=== PATIENT | male | born 1950 | race Asian ===

== ENCOUNTER 2024-03-11 15:27 | Inpatient (IN) | payer MEDICARE ==
[~2024-03-11] VITALS: Ht 167.6 cm; Wt 84.6 kg
[2024-03-11 15:27] VITALS: BP_SYST 108; PULSE 55; RESP 20; TEMP 96.6; O2SAT 95
[2024-03-11 16:08] LABS: BASOPHILS # (AUTO) 0.1 K/uL (0.0-0.2); BASOPHILS % (AUTO) 0.8 % (0.0-2.0); EOSINOPHILS % (AUTO) 0.1 % (0.0-4.0); HEMATOCRIT 42.3 % (36-54); HEMOGLOBIN 14.6 g/dL (14.0-18.0); LYMPHOCYTES # (AUTO) 0.5 K/uL (1.0-5.5); LYMPHOCYTES % (AUTO) 6.9 % (20.5-51.5); MEAN CORPUSCULAR HEMOGLOBIN 35 pg (27-31); MEAN CORPUSCULAR HGB CONC 35 % (32-36); MEAN CORPUSCULAR VOLUME 101 fL (79.0-98.0); MONOCYTES # (AUTO) 0.3 K/uL (0.0-1.0); MONOCYTES % (AUTO) 4.6 % (1.7-9.3); NEUTROPHILS # (AUTO) 6.3 K/uL (1.8-7.7); NEUTROPHILS % (AUTO) 87.6 % (40.0-70.0); RED CELL DISTRIBUTION WIDTH 14.3 % (9.0-15.0); WHITE BLOOD COUNT (AUTO) 7.2 K/uL (4.8-10.8)
[2024-03-11] MEDS: NACL 0.9% 1,000 ML IV ONE (16:09)
[2024-03-11 16:16] LABS: INR 1.5 (0.80-1.20); PROTHROMBIN TIME 15.4 SECS (9.5-12.5)
[2024-03-11 16:24] LABS: PLATELET COUNT (AUTO) 87 K/uL (130-430)
[2024-03-11 16:34] LABS: ALANINE AMINOTRANSFERASE 2778 U/L (12-78); ALBUMIN 3.1 g/dL (3.4-4.8); ANION GAP 8 (5-15); ASPARTATE AMINOTRANSFERASE 1580 U/L (10-37); BILIRUBIN,DIRECT 1.7 mg/dL (0.0-0.3); CALCIUM 9.2 mg/dL (8.4-11.0); CARBON DIOXIDE 26 mmol/L (23-29); CHLORIDE 98 mmol/L (98-107); CREATINE KINASE, TOTAL 299 U/L (39-308); CREATININE 1.56 mg/dL (0.55-1.30); GLUCOSE 127 mg/dL (74-106); SODIUM SERUM 132 mmol/L (136-145); TOTAL BILIRUBIN 2.6 mg/dL (0.0-1.0); TOTAL PROTEIN, SERUM 6.1 g/dL (6.4-8.3); UREA NITROGEN, BLOOD 24 mg/dL (8-21)
[2024-03-11 16:48] LABS: COVID19 ANTIGEN SOFIA FIA POSITIVE (NEGATIVE)
[2024-03-11 17:01] LABS: INFLUENZA TYPE A Negative (NEGATIVE); INFLUENZA TYPE B NEGATIVE (NEGATIVE)
[2024-03-11 17:18] LABS: ACETAMINOPHEN < 1 ug/mL (1-30); SALICYLATE < 1 mg/dL (3-30)
[2024-03-11] MEDS ORDERED: LISI-652 PO (17:54)
[2024-03-11] MEDS ORDERED: CARV12.548 PO (17:54)
[2024-03-11] MEDS ORDERED: FAMO20TA8 PO (17:54)
[2024-03-11] MEDS ORDERED: LIP80 PO (17:54)
[2024-03-11] MEDS ORDERED: RANO10004 PO (17:54)
[2024-03-11] MEDS ORDERED: FLUO-331 PO (17:54)
[2024-03-11] MEDS ORDERED: CLOP75TA32 PO (17:55)
[2024-03-11] MEDS ORDERED: POTA-178 PO (17:55)
[2024-03-11] MEDS ORDERED: ASPI-524 PO (17:55)
[2024-03-11] MEDS ORDERED: FURO20TA4 PO (17:55)
[2024-03-11] MEDS ORDERED: FERR-69 PO (17:55)
[2024-03-11] MEDS ORDERED: ALPR0.255 PO (17:55)
[2024-03-11] MEDS ORDERED: FOLI-43 PO (17:55)
[2024-03-11 20:56] VITALS: BP_SYST 107; PULSE 58; RESP 20; TEMP 98.7
[2024-03-11] MEDS ORDERED: ALPRAZolam 0.25 MG TABLET PO PRN (23:30)
[2024-03-11] MEDS ORDERED: LORazepam 2 MG/ML VIAL IVP PRN (23:30)
[2024-03-11] MEDS ORDERED: NALOXONE HCL 0.4 MG/ML AMP (NARCAN) IVP PRN ×2 (23:30)
[2024-03-11] MEDS ORDERED: HYDROcodone/ACETAMIN 10-325 MG TAB PO PRN (23:30)
[2024-03-11] MEDS ORDERED: ONDANSETRON HCL 4 MG/2 ML VIAL IVP PRN (23:30)
[2024-03-11] MEDS ORDERED: ACETAMINOPHEN 325 MG TABLET PO PRN (23:30)
[2024-03-11] MEDS ORDERED: HYDROcodone/ACETAMIN 5-325 MG TAB (NORCO/ VICODIN) PO PRN (23:30)
[2024-03-12 00:25] VITALS: BP_SYST 102; PULSE 58; RESP 14; TEMP 97.6; O2SAT 98
[2024-03-12] MEDS: NACL 0.9% 1,000 ML IV SCH (01:14)
[2024-03-12 01:16] VITALS: O2SAT 96
[2024-03-12 04:56] LABS: BASOPHILS % (AUTO) 0.3 % (0.0-2.0); EOSINOPHILS % (AUTO) 0.1 % (0.0-4.0); HEMATOCRIT 41.4 % (36-54); HEMOGLOBIN 13.9 g/dL (14.0-18.0); LYMPHOCYTES # (AUTO) 0.8 K/uL (1.0-5.5); LYMPHOCYTES % (AUTO) 12.6 % (20.5-51.5); MEAN CORPUSCULAR HEMOGLOBIN 34 pg (27-31); MEAN CORPUSCULAR HGB CONC 34 % (32-36); MEAN CORPUSCULAR VOLUME 102 fL (79.0-98.0); MONOCYTES # (AUTO) 0.5 K/uL (0.0-1.0); PLATELET COUNT (AUTO) 84 K/uL (130-430); RED BLOOD CELL COUNT(AUTO) 4.05 MIL/uL (4.2-6.2); WHITE BLOOD COUNT (AUTO) 6.3 K/uL (4.8-10.8)
[2024-03-12 05:42] LABS: ALANINE AMINOTRANSFERASE 2271 U/L (12-78); ANION GAP 8 (5-15); ASPARTATE AMINOTRANSFERASE 1058 U/L (10-37); BILIRUBIN,DIRECT 1.3 mg/dL (0.0-0.3); CALCIUM 9.1 mg/dL (8.4-11.0); CARBON DIOXIDE 28 mmol/L (23-29); CHLORIDE 99 mmol/L (98-107); CREATININE 1.45 mg/dL (0.55-1.30); GLUCOSE 111 mg/dL (74-106); PHOSPHORUS 2.2 mg/dL (2.7-4.5); POTASSIUM 3.7 mmol/L (3.5-5.1); SODIUM SERUM 135 mmol/L (136-145); TOTAL BILIRUBIN 2.3 mg/dL (0.0-1.0); UREA NITROGEN, BLOOD 19 mg/dL (8-21)
[2024-03-12] MEDS ORDERED: ACETYLCYSTEINE IV ONE ×5 (08:00→17:00)
[2024-03-12] MEDS ORDERED: D5W IV ONE ×5 (08:00→17:00)
[2024-03-12 08:20] VITALS: BP_SYST 124; PULSE 57; RESP 18; TEMP 97.1; O2SAT 95
[2024-03-12] MEDS: ATORVASTATIN 20 MG TABLET PO SCH (09:00)
[2024-03-12] MEDS ORDERED: CARVEDILOL 12.5 MG TABLET (COREG) PO SCH (09:00)
[2024-03-12 09:10] VITALS: O2SAT 97
[2024-03-12] MEDS: RANOLAZINE 500 MG TAB.SR.12H PO SCH (09:14)
[2024-03-12] MEDS: FOLIC ACID 1 MG TABLET PO SCH (09:15)
[2024-03-12] MEDS: FLUoxetine HCL 10 MG CAPSULE (PROzac) PO SCH (09:15)
[2024-03-12] MEDS: FERROUS SULFATE 325 MG TABLET.DR PO SCH (09:16)
[2024-03-12] MEDS: FAMOTIDINE 20 MG TABLET PO SCH (09:16)
[2024-03-12] MEDS: FUROSEMIDE 20 MG TABLET PO SCH (09:16)
[2024-03-12] MEDS: ASPIRIN 81 MG TAB.CHEW PO SCH (09:17)
[2024-03-12 11:07] VITALS: BP_SYST 121; PULSE 62; RESP 15; TEMP 97.9; O2SAT 98
[2024-03-12] MEDS: D5W IV ONE (12:32)
[2024-03-12] MEDS: ACETYLCYSTEINE IV ONE (12:32)
[2024-03-12 14:10] VITALS: BP_SYST 121; PULSE 62; RESP 16; TEMP 97.9; O2SAT 97
[2024-03-12] MEDS ORDERED: CLOPIDOGREL BISULFATE 75 MG TABLET PO SCH (21:00)
[2024-03-12] MEDS ORDERED: lisinopriL 5 MG TABLET PO SCH (21:00)
[2024-03-13 08:07] LABS: HEPATITIS A AB, IgM Negative (Negative); HEPATITIS B CORE AB, TOTAL Negative (Negative); HEPATITIS B SURFACE AG Negative (Negative); HEPATITIS C VIRUS AB Non Reactive (Non Reactive)
[2024-03-13] MEDS ORDERED: POTASSIUM CHLORIDE 10 MEQ TABLET.ER PO SCH (09:00)
== END 2024-03-12 16:05 | disposition short-term general hospital (02) | DRG 441 ==
LOC: SED 15:27 → STU 17:41
PROVIDERS: ADMIT Preventive Medicine Preventive Medicine/Occupational Environmental Medicine; ATTEND Preventive Medicine Preventive Medicine/Occupational Environmental Medicine
DX: S36.118A Other injury of liver, initial encounter (principal); U07.1 COVID-19; N17.9 Acute kidney failure, unspecified; E44.0 Moderate protein-calorie malnutrition; E87.1 Hypo-osmolality and hyponatremia; E87.20 Acidosis, unspecified; I25.10 Atherosclerotic heart disease of native coronary artery without angina pectoris; E86.0 Dehydration; I48.91 Unspecified atrial fibrillation; I11.0 Hypertensive heart disease with heart failure; I50.9 Heart failure, unspecified; E78.5 Hyperlipidemia, unspecified; R74.01 Elevation of levels of liver transaminase levels; D69.6 Thrombocytopenia, unspecified; Z95.1 Presence of aortocoronary bypass graft; Z79.82 Long term (current) use of aspirin; Z79.899 Other long term (current) drug therapy; X58.XXXA Exposure to other specified factors, initial encounter; Y93.89 Activity, other specified; Y92.89 Other specified places as the place of occurrence of the external cause; Y99.8 Other external cause status; Z68.30 Body mass index [BMI] 30.0-30.9, adult
CPT/HCPCS: 36415; 71045; 80048; 80053; 80076; 82550; 83605; 83735; 83880; 84100; 84484; 85025; 85610; 85730; 86704; 86706; 86708; 86709; 86803; 87340; 93005; 93306; 96360; 99285; G0378; G0480; G0481; J0132; J7060